=== PATIENT | male | born 1945 | race Caucasian/White ===

== ENCOUNTER 2018-09-01 15:41 | Inpatient (IN) | payer MEDICARE, MEDICAID ==
[2018-09-01 16:25] LABS: % BASOPHILS 1.2 % (0.0-2.0); % EOSINOPHILS 1.2 % (0.0-5.0); % LYMPHOCYTES 24.8 % (20.0-50.0); % MONOCYTES 5.9 % (2.0-10.0); % NEUTROPHILS 66.9 % (40.0-80.0); BASOPHILE ABSOLUTE 0.1 Th/cumm (0-0.2); EOSINOPHILE ABSOLUTE 0.1 Th/cmm (0.1-0.4); HEMOGLOBIN 13.2 gm/dL (12-16); LYMPHOCYTE ABSOLUTE 2.1 Th/cmm (1.5-3.0); MEAN CELL VOLUME 96.6 fl (80-99); MEAN CORPUSCULAR HEMOGLOBIN 32.7 pg (27.0-31.0); MEAN CORPUSCULAR HGB CONC 33.9 pg (28.0-36.0); MONOCYTE ABSOLUTE 0.5 Th/cmm (0.3-1.0); NEUTROPHILE ABSOLUTE 5.7 Th/cmm (1.8-8.0); PLATELET COUNT 220 Th/cmm (150-400); RED BLOOD COUNT 4.03 Mil/cmm (3.80-5.80); RED CELL DISTRIBUTION WIDTH 12.3 % (11.5-20.0); WHITE BLOOD COUNT 8.5 Th/cmm (4.8-10.8)
[2018-09-01 16:26] LABS: URINE SOURCE CLEAN C
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
[2018-09-01 16:31] LABS: URINE BILIRUBIN NEGATIVE (NEGATIVE); URINE BLOOD NEGATIVE (NEGATIVE); URINE GLUCOSE (UA) NEGATIVE (NEGATIVE); URINE KETONE NEGATIVE (NEGATIVE); URINE LEUKOCYTE ESTERASE NEGATIVE (NEGATIVE); URINE NITRATE NEGATIVE (NEGATIVE); URINE PH 5.5 (4.6 - 8.0); URINE PROTEIN NEGATIVE (NEGATIVE); URINE UROBILINOGEN 0.2 E.U./dL (0.2 - 1.0)
[2018-09-01 16:39] LABS: URINE CLARITY CLEAR (CLEAR); URINE COLOR YELLOW
[2018-09-01 16:40] LABS: URINE BACTERIA OCCASIONAL /hpf (NONE SEEN); URINE EPITHELIAL CELLS NONE SEEN /lpf (FEW); URINE MICROSCOPIC INDICATED? YES; URINE RBC NONE SEEN /hpf (0-5); URINE WBC 0-2 /hpf (0-5)
[2018-09-01 16:41] LABS: ACETAMINOPHEN < 10.0 ug/mL (10.0-30.0); ALB/GLOB RATIO 1.4 (1.0-1.8); ALBUMIN 3.9 gm/dL (4.2-5.5); ALKALINE PHOSPHATASE 66 U/L (34-104); ANION GAP 11.1 (7.0-16.0); BILIRUBIN,TOTAL 0.3 mg/dL (0.3-1.0); BUN - UREA NITROGEN 14 mg/dL (7-25); CALCIUM SERUM 9.2 mg/dL (8.6-10.3); CARBON DIOXIDE 25.9 mEq/L (21.0-31.0); CHLORIDE 104 mEq/L (98-107); CHOLESTEROL 142 mg/dL (<200); CREATININE - SERUM 1.2 mg/dL (0.7-1.3); GLUCOSE 92 mg/dL (70-105); HDL -HIGH DENSITY LIPOPROTEIN 36 mg/dL (23-92); SALICYLATES (ASPIRIN) < 25.0 mg/L (30.0-100.0); SGOT 12 U/L (13-39); SGPT/ALT 8 U/L (7-52); SODIUM SERUM 137 mEq/L (136-145); TOTAL PROTEIN,SERUM 6.7 gm/dL (6.0-8.3); TRIGLYCERIDES 167 mg/dL (<150)
[2018-09-01 16:53] LABS: AMPHETAMINE URINE NEGATIVE (NEGATIVE); BARBITURATES URINE NEGATIVE (NEGATIVE); COCAINE METABOLITE QUAL URINE NEGATIVE (NEGATIVE); METHADONE URINE NEGATIVE (NEGATIVE); METHAMPHETAMINES QUAL URINE NEGATIVE (NEGATIVE); PHENCYCLIDINE (PCP) URINE NEGATIVE (NEGATIVE); TRICYCLICS (TCA) QUAL. URINE NEGATIVE (NEGATIVE)
[2018-09-01 16:54] LABS: BENZODIAZEPINES QUAL URINE NEGATIVE (NEGATIVE); CANNABINOID THC NEGATIVE (NEGATIVE); OPIATES (MORPHINE) QUAL. URINE NEGATIVE (NEGATIVE)
[2018-09-01 20:00] VITALS: BP 120/79
[2018-09-01] MEDS ORDERED: Maalox 30 mL Cup PO PRN (20:12)
[2018-09-01] MEDS ORDERED: Magnesium Hydroxide (MOM) 30 mL UDC PO PRN (20:12)
[2018-09-01 20:22] LABS: CHOLESTEROL 144 mg/dL (<200); HDL -HIGH DENSITY LIPOPROTEIN 36 mg/dL (23-92); TRIGLYCERIDES 173 mg/dL (<150)
[2018-09-01] MEDS ORDERED: Non-Formulary Item 1 EA (Melatonin [Melatonin] 3 MG) PO SCH (21:00)
[2018-09-02] MEDS ORDERED: MULTIVITAMIN PO SCH (09:00)
[2018-09-02] MEDS ORDERED: FAMOTIDINE 40 MG PO SCH (09:00)
[2018-09-02] MEDS: GALANTAMINE HYDROBROMIDE 12 MG PO SCH (10:00)
[2018-09-02] MEDS: Multivitamin Tab PO SCH (10:00)
[2018-09-02] MEDS: OLANZapine 5 mg Oral Disintegrating Tab PO SCH (10:01)
--- NOTE | 2018-09-02 20:21 | Consultation ---
DATE OF CONSULTATION: 09/01/2018 INTERNAL MEDICINE CONSULTATION HISTORY OF PRESENT ILLNESS: The patient is a 73-year-old male patient of mine, ms being the PCP. PAST MEDICAL HISTORY: Significant for coronary artery disease, peptic ulcer disease, gastritis, arthritis, osteoporosis. SOCIAL HISTORY: No documented smoking or alcohol abuse. FAMILY HISTORY: Not available. REVIEW OF SYSTEMS: The patient unstable gait. No vomiting, no diarrhea, no melena, no hematochezia. PHYSICAL EXAMINATION: GENERAL: Average male in obvious respiratory distress. VITAL SIGNS: Include a blood pressure of 110/70, heart rate 80, respiration rate of 18. SKIN: Show no cellulitis. HEENT: Normal conjunctivae. NECK: Supple. LUNGS: Clear. HEART: First and second heart sound normal. S1, S2 present. ABDOMEN: Soft. Bowel sounds present. EXTREMITIES: Show arthritis. NEUROLOGIC: The patient has dementia. LABORATORY DATA: White count 8.5, hemoglobin 13.2, hematocrit 39 and platelet count of 220. Sodium 137, potassium 4, chloride 104, bicarb 25.9, BUN 14, creatinine 1.2. Blood sugar of 92. MEDICAL DIAGNOSES: As I dictated above, arthritis, peptic ulcer disease, coronary artery disease, and osteoporosis. TREATMENT PLAN: Current medicine includes Maalox, Tylenol. Rest of medicines as per psychiatrist. JOB# [id number]
--- NOTE | 2018-09-02 20:23 | Progress Notes ---
DATE: 09/02/2018 INTERNAL MEDICINE CONSULTATION FOLLOWUP SUBJECTIVE: The patient is a 73-year-old male. CURRENT MEDICAL PROBLEMS: Include coronary artery disease, peptic ulcer disease, arthritis, osteoporosis. No new symptoms. OBJECTIVE: VITAL SIGNS: Stable. LUNGS: Clear. HEART: First and second heart normal. No gallops. Systolic present. ABDOMEN: Soft. Bowel sounds present. EXTREMITIES: Show arthritis. NEUROLOGIC: The patient has dementia. MEDICAL DIAGNOSES: Remain the same. PLAN: Continue current medical treatment. Psych consult reviewed. JOB# [id number]
[2018-09-03] MEDS: GALANTAMINE HYDROBROMIDE 12 MG PO SCH (08:37)
[2018-09-03] MEDS: Multivitamin Tab PO SCH (08:37)
[2018-09-03] MEDS: OLANZapine 5 mg Oral Disintegrating Tab PO SCH (08:37)
--- NOTE | 2018-09-04 00:54 | Progress Notes ---
DATE: 09/03/2018 SUBJECTIVE: The patient was seen, chart reviewed, and discussed with staff. The patient continues to be very confused, forgetful, disoriented and often confabulating answers, presents as withdrawn, depressed and easily irritable. Often seen wandering the dining sahni; however, he has been compliant with his medications. Sleep and appetite have been stable. PLAN: The patient continues to be gravely disabled. Will require inpatient care center treatment. We will monitor patient on a daily basis for response to medication and titrate medications as needed. JOB# [id number]
[2018-09-04] MEDS: GALANTAMINE HYDROBROMIDE 12 MG PO SCH (08:39)
[2018-09-04] MEDS: Multivitamin Tab PO SCH (08:39)
[2018-09-04] MEDS: OLANZapine 5 mg Oral Disintegrating Tab PO SCH (08:40)
--- NOTE | 2018-09-04 15:51 | Progress Notes ---
DATE: 09/04/2018 The patient is a 73-year-old male. CURRENT MEDICAL PROBLEMS: Chronic obstructive pulmonary disease, coronary artery disease, peptic ulcer disease, gastritis, arthritis, osteoporosis. PHYSICAL EXAMINATION: VITAL SIGNS: Stable. LUNGS: Clear. HEART: First and second heart sounds are normal. No gallops. Systolic present. ABDOMEN: Soft. Bowel sounds present. EXTREMITIES: Show arthritis. NEUROLOGIC: The patient has dementia. PLAN: Continue current medical management. Psych consult reviewed. JOB# [id number]
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
--- NOTE | 2018-09-04 16:15 | Progress Notes ---
DATE: 09/04/2018 SUBJECTIVE: The patient is seen, chart reviewed, and discussed with staff. The patient continues to be very confused, disoriented, unable to answer questions in coherent manner. He has, however, been compliant with medications, denying any undue side effects. Sleep and appetite have been stable. PLAN: The patient continues to be gravely disabled, unable to make a safe realistic discharge plan, so that he will require continued inpatient care facility and treatment. We will monitor patient on a daily basis for response to medications and titrate medication as needed. JOB# [id number]
[2018-09-05] MEDS: OLANZapine 5 mg Oral Disintegrating Tab PO SCH (09:54)
[2018-09-05] MEDS: Multivitamin Tab PO SCH (09:56)
[2018-09-05] MEDS: GALANTAMINE HYDROBROMIDE 12 MG PO SCH (10:06)
--- NOTE | 2018-09-06 03:24 | Progress Notes ---
DATE: 09/05/2018 SUBJECTIVE: The patient is a 73-year-old male. Current medical problems include COPD, coronary artery disease, peptic ulcer disease, gastritis and arthritis. OBJECTIVE: VITAL SIGNS: Stable. LUNGS: Show occasional rhonchi, occasional crepitation, no bronchial breathing. HEART: First and second heart sounds normal. No gallop. Systolic present. ABDOMEN: Soft. Bowel sounds are present and good. EXTREMITIES: Show arthritis. ASSESSMENT: The patient has dementia. PLAN: Continue current medical management. Psych consult reviewed. JOB# [id number]
--- NOTE | 2018-09-06 05:10 | Progress Notes ---
DATE: SUBJECTIVE: Chart reviewed and the patient interviewed. Also discussed the patient's condition with the staff and reviewed records and labs. The patient continued to be in irritable mood and is still confused. The patient also is guarded and nervous. The patient also is still pacing. He gets easily agitated when approached. Otherwise, the patient is compliant with taking Depakote with no side effects. ASSESSMENT: The patient is still confused and irritable. TREATMENT PLAN: Continue Zyprexa 2.5 mg in the morning and 5 mg at bedtime. Also, Depakote blood level that was done on 09/02/2018 came back to be less than 10. JOB# [id number]
[2018-09-06] MEDS: OLANZapine 5 mg Oral Disintegrating Tab PO SCH (09:02)
[2018-09-06] MEDS: GALANTAMINE HYDROBROMIDE 12 MG PO SCH (09:02)
[2018-09-06] MEDS: Multivitamin Tab PO SCH (09:02)
--- NOTE | 2018-09-06 11:23 | Progress Notes ---
DATE: 09/06/2018 INTERNAL MEDICINE CONSULTATION FOLLOWUP SUBJECTIVE: The patient is a 73-year-old male, patient of mine, current medical problems including COPD, coronary artery disease, peptic ulcer disease, gastritis, arthritis. No new symptoms. OBJECTIVE: VITAL SIGNS: Stable. LUNGS: Show crepitation, no rhonchi. No bronchial breathing. HEART: First and second heart sounds are normal. Rare systolic present. ABDOMEN: Soft. Bowel sounds present. EXTREMITIES: Show arthritis. NEUROLOGIC: The patient has dementia. ASSESSMENT AND PLAN: Continue current medical management. Psych consult reviewed. JOB# [id number]
[2018-09-07] MEDS: Multivitamin Tab PO SCH (09:11)
[2018-09-07] MEDS: OLANZapine 5 mg Oral Disintegrating Tab PO SCH (09:12)
[2018-09-07] MEDS: GALANTAMINE HYDROBROMIDE 12 MG PO SCH (09:12)
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
--- NOTE | 2018-09-08 16:13 | Progress Notes ---
DATE: 09/06/2018 SUBJECTIVE: Chart reviewed and the patient interviewed. Also discussed the patient's condition with the staff and reviewed records and labs. The patient continued to be anxious. The patient also is still guarded and withdrawn. He also still has episodes of irritability, but less than before. The patient denies any side effects of medications. The patient also is restless and needs lots of redirections. Otherwise, the patient is compliant with taking his medications with no side effects. ASSESSMENT: The patient is still agitated. TREATMENT PLAN: Continue monitoring his behavior. Also, adjusting psychotropic medications and followup. JOB# [id number]
== END 2018-09-07 18:05 | DRG 885 ==
LOC: ER 15:41 → GERO 17:30
PROVIDERS: ADMIT Psychiatry & Neurology Psychiatry; ATTEND Psychiatry & Neurology Psychiatry
DX: F29 Unspecified psychosis not due to a substance or known physiological condition (principal); F03.91 Unspecified dementia, unspecified severity, with behavioral disturbance; K21.9 Gastro-esophageal reflux disease without esophagitis; M81.0 Age-related osteoporosis without current pathological fracture; M19.90 Unspecified osteoarthritis, unspecified site; K27.9 Peptic ulcer, site unspecified, unspecified as acute or chronic, without hemorrhage or perforation; F17.210 Nicotine dependence, cigarettes, uncomplicated; I25.10 Atherosclerotic heart disease of native coronary artery without angina pectoris; J44.9 Chronic obstructive pulmonary disease, unspecified; K29.70 Gastritis, unspecified, without bleeding; Z82.49 Family history of ischemic heart disease and other diseases of the circulatory system
CPT/HCPCS: 36415-UA; 80053-TC; 80061-TC; 80164-TC; 80307; 80320-TC; 80329-TC; 81001-TC; 83036-90; 84443-TC; 85025-TC; 86592-TC; 93005; J7051